=== PATIENT | female | born 2000 | race Caucasian/White ===

== ENCOUNTER 2022-01-22 03:29 | Emergency (ER) | payer OTHER ==
[2022-01-22 03:37] VITALS: BP 120/47; PULSE 101; RESP 24; TEMP 98.4
[2022-01-22] MEDS ORDERED: ACETAMINOPHEN TAB 500 MG TAB PO STA (03:38)
[2022-01-22] MEDS ORDERED: IBUPROFEN 800 MG TAB PO STA (03:38)
--- NOTE | 2022-01-22 03:39 | ED ---
Fever HPI - General Chief Complaint: Fever Stated Complaint: Fever Time Seen by Provider: 01/22/22 03:37 Source: patient, RN notes reviewed, old records reviewed Mode of arrival: wheelchair Limitations: no limitations - History of Present Illness Initial Comments: This is a 22-year-old female who awakens with fever. Patient's is very anxious on arrival to ER. States her body aches and some pain. States she took a shower does not feel any better. She did take some aspirin prior to arrival. Patient has history of anxiety takes no medications has no medical history no other complaint MD Complaint: fever, malaise -: days(s) Temperature Source: subjective Context: sick contacts Associated Symptoms: chills, myalgias, nasal congestion, sore throat Treatments Prior to Arrival: none - Related Data Allergies Allergy/AdvReac Type Severity Reaction Status Date / Time No Known Allergies Allergy Verified 01/22/22 03:36 Review of Systems ROS Statement: Those systems with pertinent positive or pertinent negative responses have been documented in the HPI. ROS Other: All systems not noted in ROS Statement are negative. Past Medical History Past Medical History: No Reported History Past Surgical History: Appendectomy Past Psychological History: Anxiety Smoking Status: Current some day smoker Past Alcohol Use History: None Reported Past Drug Use History: None Reported General Exam Limitations: no limitations General appearance: alert, in no apparent distress Head exam: Present: atraumatic, normocephalic, normal inspection Eye exam: Present: normal appearance, PERRL, EOMI. Absent: scleral icterus, conjunctival injection, periorbital swelling ENT exam: Present: normal exam, mucous membranes moist Neck exam: Present: normal inspection. Absent: tenderness, meningismus, lymphadenopathy Respiratory exam: Present: normal lung sounds bilaterally. Absent: respiratory distress, wheezes, rales, rhonchi, stridor Cardiovascular Exam: Present: normal rhythm, tachycardia, normal heart sounds. Absent: systolic murmur, diastolic murmur, rubs, gallop, clicks GI/Abdominal exam: Present: soft, normal bowel sounds. Absent: distended, tenderness, guarding, rebound, rigid Extremities exam: Present: normal inspection, full ROM, normal capillary refill. Absent: tenderness, pedal edema, joint swelling, calf tenderness Back exam: Present: normal inspection Neurological exam: Present: alert, oriented X3, CN II-XII intact Psychiatric exam: Present: normal affect, normal mood Skin exam: Present: warm, dry, intact, normal color. Absent: rash Course Vital Signs 01/22/22 03:31 Temperature 98.4 F Pulse Rate 101 H Respiratory 24 Rate Blood Pressure 120/47 O2 Sat by Pulse 99 Oximetry - Reevaluation(s) Reevaluation #1: 01/22/22 04:19 Record is reviewed Reevaluation #2: 01/22/22 05:08 Patient complaining of increasing pain and severe weakness 01/22/22 05:08 Patient states she's having difficulty ambulating Reevaluation #3: 01/22/22 06:07 Is feeling currently better with fluid resuscitation and anti-inflammatory treatment, will continue Motrin Tylenol at home as well as pain control nausea Reevaluation #4: 01/22/22 06:07 she is informed results and questions answered Medical Decision Making - Medical Decision Making 22 female DF for evaluation patient Dese for evaluation bodyaches and pains. Anxiety. Patient also noted fevers and chills. Patient did have significantly elevated white blood cell, with no significant cause. Likely viral syndrome currently. Patient will be given symptomatically therapy can be discharged home - Lab Data Result diagrams: 01/22/22 05:14 01/22/22 05:14 Lab Results 01/22/22 01/22/22 01/22/22 Range/Units 03:51 03:51 04:21 WBC (3.8-10.6) k/uL RBC (3.80-5.40) m/uL Hgb (11.4-16.0) gm/dL Hct (34.0-46.0) % MCV (80.0-100.0) fL MCH (25.0-35.0) pg MCHC (31.0-37.0) g/dL RDW (11.5-15.5) % Plt Count (150-450) k/uL MPV Neutrophils % % Lymphocytes % % Monocytes % % Eosinophils % % Basophils % % Neutrophils # (1.3-7.7) k/uL Lymphocytes # (1.0-4.8) k/uL Monocytes # (0-1.0) k/uL Eosinophils # (0-0.7) k/uL Basophils # (0-0.2) k/uL Sodium (137-145) mmol/L Potassium (3.5-5.1) mmol/L Chloride (98-107) mmol/L Carbon Dioxide (22-30) mmol/L Anion Gap mmol/L BUN (7-17) mg/dL Creatinine (0.52-1.04) mg/dL Est GFR (CKD-EPI)AfAm (>60 ml/min/1.73 sqM) Est GFR (CKD-EPI)NonAf (>60 ml/min/1.73 sqM) Glucose (74-99) mg/dL Calcium (8.4-10.2) mg/dL Phosphorus (2.5-4.5) mg/dL Magnesium (1.6-2.3) mg/dL Total Bilirubin (0.2-1.3) mg/dL AST (14-36) U/L ALT (4-34) U/L Alkaline Phosphatase (38-126) U/L Total Protein (6.3-8.2) g/dL Albumin (3.5-5.0) g/dL Urine Color Yellow Urine Appearance Clear (Clear) Urine pH 7.5 (5.0-8.0) Ur Specific [place] 1.023 (1.001-1.035) Urine Protein Negative (Negative) Urine Glucose (UA) Negative (Negative) Urine Ketones Trace H (Negative) Urine Blood Negative (Negative) Urine Nitrite Negative (Negative) Urine Bilirubin Negative (Negative) Urine Urobilinogen <2.0 (<2.0) mg/dL Ur Leukocyte Esterase Negative (Negative) Urine HCG, Qual (Not Detectd) Coronavirus (PCR) Not Detected (Not Detectd) Influenza Type A RNA Not Detected (Not Detectd) Influenza Type B (PCR) Not Detected (Not Detectd) 01/22/22 01/22/22 01/22/22 Range/Units 04:21 05:14 05:14 WBC 18.3 H (3.8-10.6) k/uL RBC 4.68 (3.80-5.40) m/uL Hgb 13.5 (11.4-16.0) gm/dL Hct 41.4 (34.0-46.0) % MCV 88.3 (80.0-100.0) fL MCH 28.7 (25.0-35.0) pg MCHC 32.5 (31.0-37.0) g/dL RDW 12.4 (11.5-15.5) % Plt Count 312 (150-450) k/uL MPV 6.6 Neutrophils % 88 % Lymphocytes % 7 % Monocytes % 2 % Eosinophils % 2 % Basophils % 0 % Neutrophils # 16.2 H (1.3-7.7) k/uL Lymphocytes # 1.3 (1.0-4.8) k/uL Monocytes # 0.4 (0-1.0) k/uL Eosinophils # 0.3 (0-0.7) k/uL Basophils # 0.1 (0-0.2) k/uL Sodium 136 L (137-145) mmol/L Potassium 3.9 (3.5-5.1) mmol/L Chloride 105 (98-107) mmol/L Carbon Dioxide 18 L (22-30) mmol/L Anion Gap 13 mmol/L BUN 15 (7-17) mg/dL Creatinine 0.63 (0.52-1.04) mg/dL Est GFR (CKD-EPI)AfAm >90 (>60 ml/min/1.73 sqM) Est GFR (CKD-EPI)NonAf >90 (>60 ml/min/1.73 sqM) Glucose 109 H (74-99) mg/dL Calcium 9.4 (8.4-10.2) mg/dL Phosphorus 2.4 L (2.5-4.5) mg/dL Magnesium 1.5 L (1.6-2.3) mg/dL Total Bilirubin 0.4 (0.2-1.3) mg/dL AST 26 (14-36) U/L ALT 19 (4-34) U/L Alkaline Phosphatase 73 (38-126) U/L Total Protein 7.0 (6.3-8.2) g/dL Albumin 4.3 (3.5-5.0) g/dL Urine Color Urine Appearance (Clear) Urine pH (5.0-8.0) Ur Specific [place] (1.001-1.035) Urine Protein (Negative) Urine Glucose (UA) (Negative) Urine Ketones (Negative) Urine Blood (Negative) Urine Nitrite (Negative) Urine Bilirubin (Negative) Urine Urobilinogen (<2.0) mg/dL Ur Leukocyte Esterase (Negative) Urine HCG, Qual Not Detected (Not Detectd) Coronavirus (PCR) (Not Detectd) Influenza Type A RNA (Not Detectd) Influenza Type B (PCR) (Not Detectd) - Radiology Data Radiology results: report reviewed (Chest x-rays negative for acute disease), image reviewed Disposition Clinical Impression: Viral infection, Myalgia, Arthritis, Fever, Leukocytosis, Hypomagnesemia, Anxiety Disposition: HOME SELF-CARE Condition: Good Instructions (If sedation given, give patient instructions): Fever in Adults (ED) Is patient prescribed a controlled substance at d/c from ED?: No Referrals: Nonstaff,Physician [Primary Care Provider] - 1-2 days Time of Disposition: 06:10
[2022-01-22] MEDS ORDERED: LORazepam 1 MG TAB PO STA (03:47)
--- NOTE | 2022-01-22 04:09 | XR ---
EXAMINATION TYPE: XR chest 1V DATE OF EXAM: 01/22/2022 COMPARISON: NONE HISTORY: Fever and chills TECHNIQUE: Single view FINDINGS: Heart and mediastinum are normal. Lungs are clear. Diaphragm is normal. Bony thorax is inta ct. IMPRESSION: Normal chest.
[2022-01-22 04:39] LABS: Appearance,Urine Clear (Clear); Bilirubin,Urine Negative (Negative); Blood,Urine Negative (Negative); Color,Urine Yellow; Glucose,Urine (UA) Negative (Negative); Ketones,Urine Trace (Negative); Leukocyte Esterase,Urine Negative (Negative); Nitrite,Urine Negative (Negative); PH, Urine 7.5 (5.0-8.0); Protein,Urine Negative (Negative); Specific Gravity,Urine 1.023 (1.001-1.035); Urobilinogen,Urine <2.0 mg/dL (<2.0)
[2022-01-22] MEDS ORDERED: SODIUM CHLORIDE 0.9% 1,000 ML IV STA (04:58)
[2022-01-22] MEDS ORDERED: MORPHINE SULFATE 2 MG/ML SYRINGE IVP STA (04:58)
[2022-01-22] MEDS ORDERED: DEXAMETHASONE SOD PHOSPHATE 10 MG/ML 1 ML VIAL IVP STA (04:58)
[2022-01-22 05:20] LABS: Basophils # (A) 0.1 k/uL (0-0.2); Basophils % (A) 0 %; Eosinophils # (A) 0.3 k/uL (0-0.7); Eosinophils % (A) 2 %; HCT 41.4 % (34.0-46.0); HGB 13.5 gm/dL (11.4-16.0); Lymphocytes # (A) 1.3 k/uL (1.0-4.8); Lymphocytes % (A) 7 %; MCH 28.7 pg (25.0-35.0); MCHC 32.5 g/dL (31.0-37.0); MCV 88.3 fL (80.0-100.0); Mean Platelet Volume 6.6; Monocytes # (A) 0.4 k/uL (0-1.0); Monocytes % (A) 2 %; Neutrophils # (A) 16.2 k/uL (1.3-7.7); Neutrophils % (A) 88 %; Platelet Count 312 k/uL (150-450); RBC 4.68 m/uL (3.80-5.40); RDW 12.4 % (11.5-15.5); WBC 18.3 k/uL (3.8-10.6)
[2022-01-22 05:31] LABS: ALT 19 U/L (4-34); AST 26 U/L (14-36); African American GFR (CKD) >90 (>60 ml/min/1.73 sqM); Albumin 4.3 g/dL (3.5-5.0); Alkaline Phosphatase 73 U/L (38-126); Anion Gap 13 mmol/L; Blood Urea Nitrogen 15 mg/dL (7-17); Calcium 9.4 mg/dL (8.4-10.2); Carbon Dioxide 18 mmol/L (22-30); Chloride 105 mmol/L (98-107); Glucose 109 mg/dL (74-99); Magnesium 1.5 mg/dL (1.6-2.3); Non-African American GFR(CKD) >90 (>60 ml/min/1.73 sqM); Phosphorus 2.4 mg/dL (2.5-4.5); Potassium 3.9 mmol/L (3.5-5.1); Sodium 136 mmol/L (137-145); Total Bilirubin 0.4 mg/dL (0.2-1.3)
[2022-01-22] MEDS ORDERED: MAGNESIUM OXIDE 400 MG TAB PO STA ×2 (05:41)
[2022-01-22] MEDS ORDERED: ACET/COD 300 MG/30 MG STARTER PACK 6 TAB BTL PO STA (06:05)
[2022-01-22] MEDS ORDERED: ONDANSETRON 4 MG ODT STARTER PACK 2 TAB BTL PO STA (06:05)
[2022-01-22] MEDS ORDERED: IBUPROFEN 600 MG STARTER PACK 4 TAB BTL PO STA (06:05)
[2022-01-22] MEDS ORDERED: traMADol 50 MG STARTER PACK 3 TAB BTL PO STA (06:05)
[2022-01-22 14:32] LABS: C Reactive Protein 0.7 mg/dL (<1.0)
== END 2022-01-22 06:27 | disposition home or self-care (01) ==
LOC: EC 03:29
DX: B34.9 Viral infection, unspecified (principal); M19.90 Unspecified osteoarthritis, unspecified site; D72.829 Elevated white blood cell count, unspecified; E83.42 Hypomagnesemia; F41.9 Anxiety disorder, unspecified; F17.200 Nicotine dependence, unspecified, uncomplicated; Z20.822 Contact with and (suspected) exposure to COVID-19
CPT/HCPCS: 99283; 36415; 80053; 82550; 82553; 83615; 83735; 84100; 85025; 86140; 81003; 81025; 87502; 87635; 71045; 96374; 96375; 96361; J1100; J2270

== ENCOUNTER 2022-12-02 22:30 | Inpatient (IN) | payer OTHER ==
[2022-12-02] MEDS ORDERED: OXYTOCIN 10 UNIT/ML 1 ML VIAL IM PRN (23:03)
[2022-12-02] MEDS ORDERED: LIDOCAINE 0.5% (PF) 5 MG/ML (50 ML SDV) SQ PRN (23:03)
[2022-12-02] MEDS ORDERED: METHYLERGONOVINE 0.2 MG/ML 1 ML AMP IM PRN (23:03)
[2022-12-02] MEDS ORDERED: TERBUTALINE 1 MG/ML VIAL SQ PRN (23:03)
[2022-12-02] MEDS ORDERED: TRANEXAMIC 1,000 MG/100ML-NACL 1,000 MG in EMPTY BAG 1 BAG IV PRN (23:03)
[2022-12-02] MEDS ORDERED: miSOPROStoL 200 MCG TAB PO PRN (23:03)
[2022-12-02] MEDS ORDERED: CARBOPROST TROMETHAMINE 250 MCG/ML 1 ML AMP IM PRN (23:03)
[2022-12-02] MEDS ORDERED: NALBUPHINE 10 MG/ML (10 ML MDV) IV PRN (23:04)
[2022-12-02] MEDS ORDERED: OXYTOCIN 30 UNITS/500 ML NS 30 UNIT in SALINE 1 500ML.BAG IV SCH (23:15)
[2022-12-02 23:36] LABS: Basophils % (A) 0 %; Eosinophils # (A) 0.1 k/uL (0-0.7); Eosinophils % (A) 1 %; HCT 35.8 % (34.0-46.0); HGB 11.9 gm/dL (11.4-16.0); Lymphocytes # (A) 3.1 k/uL (1.0-4.8); Lymphocytes % (A) 22 %; MCH 29.1 pg (25.0-35.0); MCHC 33.2 g/dL (31.0-37.0); MCV 87.9 fL (80.0-100.0); Mean Platelet Volume 7.7; Monocytes # (A) 0.8 k/uL (0-1.0); Monocytes % (A) 6 %; Neutrophils # (A) 10.1 k/uL (1.3-7.7); Neutrophils % (A) 70 %; Platelet Count 259 k/uL (150-450); RBC 4.07 m/uL (3.80-5.40); RDW 14.1 % (11.5-15.5); WBC 14.4 k/uL (3.8-10.6)
[2022-12-03] MEDS: LACTATED RINGERS 1,000 ML IV SCH ×3 (00:46→21:50)
--- NOTE | 2022-12-03 10:22 | P.HPOB ---
History of Present Illness H&P Date: 12/03/22 Chief Complaint: Leakage of fluid Ms. Brush is a 22 year old at 40 weeks and 1 day with EDC of 12/02/2022 (by LMP consistent with 8 week US) who presented to labor and delivery yesterday evening with rupture of membranes at 2200 yesterday evening revealing clear fluid. The patient was admitted overnight and labor was augmented with pitocin. 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 The patient also has a history of anxiety but does not take medications for this. The fetus was estimated at 72%ile for gestational age at 32 week ultrasound. Maternal work-up: blood type O positive, antibody negative, rubella immune, VDRL non-reactive, HBsAg negative, HIV negative, gonorrhea negative, chlamydia negative, 1 hour GTT 122, GBS negative. TDap administered 09/12/2022. Past medical history: None Past surgical history: Appendectomy Medications: Aspirin 81mg daily, pepcid 20mg daily, vitamins Allergies: NKDA Past Medical History Past Medical History: No Reported History History of Any Multi-Drug Resistant Organisms: None Reported Past Surgical History: Appendectomy Past Anesthesia/Blood Transfusion Reactions: No Reported Reaction Past Psychological History: Anxiety Smoking Status: Current some day smoker Past Alcohol Use History: None Reported Past Drug Use History: None Reported Medications and Allergies Home Medications Medication Instructions Recorded Confirmed Type Aspirin 81 mg PO DAILY 12/02/22 12/02/22 History Famotidine [Pepcid] 10 mg PO DAILY 12/02/22 12/02/22 History Vit No.179/Iron/Folic 1 tab PO DAILY 12/02/22 12/02/22 History [ Tablet] Allergies Allergy/AdvReac Type Severity Reaction Status Date / Time No Known Allergies Allergy Verified 01/22/22 03:36 Exam Vital Signs Temp Pulse Resp BP Pulse Ox 12/02/22 23:19 97.8 F 109 H 16 125/62 99 12/02/22 22:59 97.8 F 109 H 16 125/62 99 Intake and Output 12/02/22 12/03/22 12/03/22 22:59 06:59 14:59 Other: Weight 79.379 kg Focused physical exam is performed. This is a healthy-appearing in no apparent distress. Abdomen is non-tender, gravid. Cervical exam is deferred as the patient was recently checked by her nurse. Extremities are non-tender, non- edematous. heart tones are Category I with pitocin at 14 units. Tocometer is not graphing contractions well and shows an irregular pattern ever 3-7 minutes. Results Result Diagrams: 12/02/22 23:21 Abnormal Lab Results - Last 24 Hours (Table) 12/02/22 Range/Units 23:21 WBC 14.4 H (3.8-10.6) k/uL Neutrophils # 10.1 H (1.3-7.7) k/uL Assessment and Plan Assessment: 22 year old at 40 weeks and 1 day presenting after spontaenous rupture of membranes Plan: Admit, NPO, mIVF, pitocin augmentation titrated per hospital protocol, IV nubain prn or nitrous oxide prn. Continious EFM, close monitoring of patient. Time with Patient: Less than 30 (10 minutes)
[2022-12-03] MEDS ORDERED: ROPIVACAINE 5 MG/ML 20 ML AMPULE ONE (14:58)
[2022-12-03] MEDS ORDERED: SODIUM CHLORIDE 0.9% 100 ML BAG ONE (14:58)
[2022-12-03] MEDS ORDERED: fentaNYL (PF) 50 MCG/ML 5 ML AMP ONE (14:58)
[2022-12-03] MEDS ORDERED: MORPHINE SULFATE 4 MG/ML SYRINGE IVP STA (21:08)
[2022-12-03] MEDS ORDERED: miSOPROStoL 200 MCG TAB RECTAL STA (22:08)
[2022-12-03] MEDS ORDERED: BENZOCAINE/MENTHOL SPRAY 1 GM/SPRAY AEROSOL TOPICAL PRN (22:25)
[2022-12-03] MEDS ORDERED: diphenhydrAMINE 50 MG/ML 1 ML VIAL IVP PRN ×2 (22:25)
[2022-12-03] MEDS ORDERED: diphenhydrAMINE 25 MG CAP PO PRN (22:25)
[2022-12-03] MEDS ORDERED: ZOLPIDEM 5 MG TAB PO PRN (22:25)
[2022-12-03] MEDS ORDERED: HYDROCORTISONE 2.5% RECTAL CREAM 30 GM TUBE RECTAL PRN (22:25)
[2022-12-03] MEDS ORDERED: LANOLIN CREAM 5 GM TUBE TOPICAL PRN (22:25)
[2022-12-03] MEDS ORDERED: diphenhydrAMINE 50 MG CAP PO PRN (22:25)
[2022-12-03] MEDS ORDERED: SIMETHICONE 80 MG CHEWABLE PO PRN (22:25)
[2022-12-03] MEDS ORDERED: OXYTOCIN 30 UNITS/500 ML NS 30 UNIT in SALINE 1 500ML.BAG IV SCH (22:30)
--- NOTE | 2022-12-03 22:33 | P.PROBDLV ---
Vaginal Delivery Note - . Vaginal Delivery Note: DATE OF SERVICE: 12/03/2022 PROCEDURE: Vaginal Delivery Complicated by Hemorrhage ATTENDING: Dr. Kim Haque MD ESTIMATED BLOOD LOSS: 1,000 mL FINDINGS: VMI, Apgars 8/9. Weight 7 pounds and 12.5 ounces (3530 grams) PROCEDURE: This is a 22 year old at 40 weeks and 1 day presenting to labor and delivery after spontaneous rupture of membranes. The had been uncomplicated. For further details, please review the admitting H&P. The patient was completely dilated at 1955. The patient pushed the head effectively. The head was delivered over an intact perineum follow by the shoulders and body. A viable male infant was delivered at 2054. The infant was placed on the maternal abdomen and bulb suctioned. Cord was clamped and cut after a 30-second delay. The infant was handed off to the pediatric team. Placenta was delivered whole with gentle cord traction at 2056. Oxytocin was started to facilitate uterine tone. Uterine fundus was found to be firm and below the umbilicus upon fundal massage. Thorough examination of the cervix, vagina, periurethral area, and perineum revealed a right labial laceration and a first degree perineal laceration. These were repaired with 2-0 and 3-0 Vicryl in a running fashion respectively. Brisk bleeding was noted from the uterus and a with bimanual uterine massage a significant amount of blood clots were extracted from the cervix. Oxytocin was run wide open, Methergine 0.2 mg IM was given, and 1,000mg of rectal cytotec was placed. The bleeding was minimal at this time and the fundus was firm. The patient is stable and allowed to begin the bonding process.require repair and an intact perineum. Patient stable .
[2022-12-04] MEDS: LACTATED RINGERS 1,000 ML IV SCH (00:51)
[2022-12-04] MEDS: IBUPROFEN 600 MG TAB PO PRN ×3 (03:25→18:03)
[2022-12-04 03:51] LABS: Basophils % (A) 0 %; Eosinophils # (A) 0.1 k/uL (0-0.7); Eosinophils % (A) 0 %; HCT 27.5 % (34.0-46.0); Lymphocytes # (A) 1.9 k/uL (1.0-4.8); Lymphocytes % (A) 9 %; MCH 29.6 pg (25.0-35.0); MCHC 33.8 g/dL (31.0-37.0); MCV 87.6 fL (80.0-100.0); Mean Platelet Volume 7.7; Monocytes # (A) 0.8 k/uL (0-1.0); Monocytes % (A) 4 %; Neutrophils # (A) 18.9 k/uL (1.3-7.7); Neutrophils % (A) 87 %; Platelet Count 234 k/uL (150-450); RBC 3.14 m/uL (3.80-5.40); RDW 14.2 % (11.5-15.5); WBC 21.7 k/uL (3.8-10.6)
[2022-12-04 04:02] LABS: HGB 9.3 gm/dL (11.4-16.0)
[2022-12-04] MEDS: ACETAMINOPHEN TAB 325 MG TAB PO PRN ×3 (08:00→20:38)
[2022-12-04] MEDS: SENNOSIDES-DOCUSATE SODIUM 1 EACH TAB PO SCH ×2 (08:02→20:39)
[2022-12-04 08:31] LABS: Basophils % (A) 0 %; Eosinophils # (A) 0.1 k/uL (0-0.7); Eosinophils % (A) 0 %; HCT 26.3 % (34.0-46.0); HGB 9.1 gm/dL (11.4-16.0); Lymphocytes # (A) 2.5 k/uL (1.0-4.8); Lymphocytes % (A) 15 %; MCH 30.4 pg (25.0-35.0); MCHC 34.6 g/dL (31.0-37.0); Mean Platelet Volume 7.5; Monocytes # (A) 0.9 k/uL (0-1.0); Monocytes % (A) 5 %; Neutrophils # (A) 13.4 k/uL (1.3-7.7); Neutrophils % (A) 79 %; Platelet Count 235 k/uL (150-450); RBC 2.98 m/uL (3.80-5.40); RDW 14.1 % (11.5-15.5); WBC 16.9 k/uL (3.8-10.6)
--- NOTE | 2022-12-04 10:21 | P.PNOBGVD ---
Subjective - Subjective Principal diagnosis: s/p vaginal delivery complicated by hemorrhage Interval history: The patient is doing well this morning and had no acute events overnight. She has no complaints this morning. She reports minimal lochia, passing flatus, voiding without difficulty, ambulating, and eating/drinking without nausea or vomiting. She is her infant without difficulty. She denies chest pain, shortness of breathing, fevers, or chills overnight. She denies pain or swelling in the legs. She denies lightheadedness with ambulation. Patient reports: Reports appetite normal, Reports voiding normally, Reports pain well controlled, Reports ambulating normally : doing well, nursing well Objective - Latest Vital Signs Latest vital signs: Vital Signs Temp Pulse Pulse Resp BP Pulse Ox 12/04/22 04:00 99.2 F 115 H 16 103/67 98 12/03/22 23:40 100.3 F H 82 18 117/56 100 12/03/22 23:10 97 18 119/58 12/03/22 22:40 108 H 16 116/68 12/03/22 22:25 104 H 16 140/66 100 12/03/22 22:10 120 H 16 115/54 12/03/22 21:55 98.5 F 104 H 16 118/54 100 12/03/22 21:40 114 H 16 120/55 Intake and Output 12/03/22 12/04/22 12/04/22 22:59 06:59 14:59 Intake Total 224.067 Output Total 1000 134 Balance -775.933 -134 Intake: Intake, IV Titration 224.067 Amount Oxytocin 30 Units/500 ml 224.067 Ns 30 unit In Saline 1 500ml.bag @ Per Protocol IV .Q0M [facility] Rx#:[id number] Output: Estimated Blood Loss 1000 Output, Quantitative 134 Blood Loss Other: # Voids 1 - Exam Extremities: Present: normal Abdomen: Present: normal appearance, soft Uterus: Present: normal, firm - Labs Labs: Abnormal Lab Results - Last 24 Hours (Table) 12/04/22 12/04/22 Range/Units 03:11 07:26 WBC 21.7 H 16.9 H (3.8-10.6) k/uL RBC 3.14 L 2.98 L (3.80-5.40) m/uL Hgb 9.3 L D 9.1 L (11.4-16.0) gm/dL Hct 27.5 L 26.3 L (34.0-46.0) % Neutrophils # 18.9 H 13.4 H (1.3-7.7) k/uL Assessment and Plan Assessment: 22 year old now PPD#1 s/p vaginal delivery complicated by hemorrhage Plan: 1. . Patient meeting all miltestones appropriately. 2. hemorrhage. Hgb 11.9 > 1,000mL EBL > 9.3 > 9.1. Hgb now stable. Patient with intermittent tachycardia overnight. Vital signs stable this morning. Patient asymptomatic. 3. fever x1, 100.3 at 2340 /24. Suspect reactive. Continue to monitor. 4. Viable male infant at bedside doing well. Consented for circumcision today. Dispo: Anticipate discharge home tomorrow morning.
[2022-12-05] MEDS: IBUPROFEN 600 MG TAB PO PRN ×2 (00:33→06:54)
[2022-12-05] MEDS: ACETAMINOPHEN TAB 325 MG TAB PO PRN ×2 (03:21→12:20)
[2022-12-05 07:37] LABS: Basophils % (A) 0 %; Eosinophils # (A) 0.2 k/uL (0-0.7); Eosinophils % (A) 2 %; HCT 22.7 % (34.0-46.0); HGB 7.8 gm/dL (11.4-16.0); Lymphocytes # (A) 3.3 k/uL (1.0-4.8); Lymphocytes % (A) 29 %; MCH 30.6 pg (25.0-35.0); MCHC 34.2 g/dL (31.0-37.0); MCV 89.4 fL (80.0-100.0); Mean Platelet Volume 7.7; Monocytes # (A) 0.5 k/uL (0-1.0); Monocytes % (A) 4 %; Neutrophils # (A) 7.3 k/uL (1.3-7.7); Neutrophils % (A) 64 %; Platelet Count 225 k/uL (150-450); RBC 2.54 m/uL (3.80-5.40); RDW 14.5 % (11.5-15.5); WBC 11.4 k/uL (3.8-10.6)
[2022-12-05] MEDS: SENNOSIDES-DOCUSATE SODIUM 1 EACH TAB PO SCH (08:04)
--- NOTE | 2022-12-05 10:04 | P.PNOBGVD ---
Subjective - Subjective Principal diagnosis: s/p vaginal delivery complicated by PP hemorrhage Interval history: Patient doing well this morning, no acute events overnight. Has no complains. Desires discharge home today. Ambulating without lightheadedness, voiding without difficulty, tolerating PO without nausea or vomiting, minimal lochia. infant male well, infant s/p cirucmcision. Denies fevers, chills, chest pain, shortness of breath, pain/swelling in the legs. Patient reports: Reports appetite normal, Reports voiding normally, Reports pain well controlled, Reports ambulating normally : doing well, nursing well Objective - Latest Vital Signs Latest vital signs: Vital Signs Temp Pulse Pulse Resp BP Pulse Ox 12/05/22 07:55 97.8 F 107 H 16 105/55 12/05/22 00:00 98.3 F 87 16 117/76 97 12/04/22 16:00 98.5 F 92 17 108/76 98 12/04/22 12:00 98.4 F 97 18 116/62 99 Intake and Output 12/04/22 12/05/22 12/05/22 22:59 06:59 14:59 Other: # Voids 2 2 1 - Exam Extremities: Present: normal Abdomen: Present: normal appearance, soft Uterus: Present: normal, firm - Labs Labs: Abnormal Lab Results - Last 24 Hours (Table) 12/05/22 Range/Units 07:12 WBC 11.4 H (3.8-10.6) k/uL RBC 2.54 L (3.80-5.40) m/uL Hgb 7.8 L (11.4-16.0) gm/dL Hct 22.7 L (34.0-46.0) % Assessment and Plan Assessment: 22 year old now PPD#2 s/p vaginal delivery complicated by hemorrhage Plan: 1. . Patient meeting all miltestones appropriately. 2. hemorrhage. Hgb 11.9 > 1,000mL EBL > 9.3 > 9.1 >7.8. Vital signs stable this morning. Patient asymptomatic. Will d/c on PO iron supplementation. 3. Viable male at bedside doing well. s/p circumcision. Dispo: Discharge home today.
--- NOTE | 2022-12-05 10:10 | P.DS ---
Providers Date of admission: 12/02/22 23:07 Expected date of discharge: 12/05/22 Attending physician: Kim Haque MD Primary care physician: Stated None Hospital Course: This is a 22 year old now PPD#2 s/p vaginal delivery complicated by hemorrhage. She is feeling well today, is asymptomatic, ambulating without difficulty. She is voiding without difficulty, tolerating PO without nausea or vomiting. She is male well, s/p circumcision. She desires discharge home today. She denies fevers, chills, chest pain, shortness of breath, pain/swelling in the legs. I discussed discharge inst ructions including pelvic rest for 6 weeks. I encouraged the patient to call the office for pain worsening rather than improving, heavy bleeding, foul-smelling vaginal discharge, breast complaints, mood concerns, or any other questions. All questions answered this morning. Patient will follow up in the office in 6 weeks for appointment. Assessment: 22 year old now PPD#2 s/p vaginal delivery complicated by hemorrhage. Patient Condition at Discharge: Good Plan - Discharge Summary Discharge Rx Participant: No New Discharge Prescriptions: New Ferrous Sulfate [Iron (65 MG Elemental)] 325 mg PO DAILY #30 tab polyethylene glycoL 3350 [Miralax] 17 gm PO DAILY PRN #527 gm PRN Reason: Constipation Acetaminophen Tab [Tylenol] 650 mg PO Q6H PRN #30 tab PRN Reason: Mild Pain (Scale 1 To 3) Ibuprofen [Motrin] 600 mg PO Q6HR PRN #30 tab PRN Reason: Mild Pain (Scale 1 To 3) No Action Vit No.179/Iron/Folic [ Tablet] 1 tab PO DAILY Famotidine [Pepcid] 10 mg PO DAILY Aspirin 81 mg PO DAILY Discharge Medication List Aspirin 81 mg PO DAILY 12/02/22 [History] Famotidine [Pepcid] 10 mg PO DAILY 12/02/22 [History] Vit No.179/Iron/Folic [ Tablet] 1 tab PO DAILY 12/02/22 [History] Acetaminophen Tab [Tylenol] 650 mg PO Q6H PRN #30 tab 12/05/22 [Rx] Ferrous Sulfate [Iron (65 MG Elemental)] 325 mg PO DAILY #30 tab 12/05/22 [Rx] Ibuprofen [Motrin] 600 mg PO Q6HR PRN #30 tab 12/05/22 [Rx] polyethylene glycoL 3350 [Miralax] 17 gm PO DAILY PRN #527 gm 12/05/22 [Rx] Follow up Appointment(s)/Referral(s): Kim Haque MD [STAFF PHYSICIAN] - 6 Weeks Patient Instructions/Handouts: How to Increase Your Milk Supply (DC), How to Tell if Your Baby is Getting Enough Breast Milk (DC), Depression (DC), Perineal Care (DC), Bleeding (DC) Activity/Diet/Wound Care/Special Instructions: Pelvic rest with nothing in the vagina including intercourse for 6 weeks Discharge Disposition: HOME SELF-CARE
[2022-12-05 16:36] VITALS: BP 108/69; PULSE 101; RESP 20; TEMP 98.1
== END 2022-12-05 18:50 | disposition home or self-care (01) | DRG 806 ==
LOC: FBPOP 22:30 → 4FBP 23:07
PROVIDERS: ADMIT Obstetrics & Gynecology; ATTEND Obstetrics & Gynecology
PROC: 3E0P7VZ Introduction of Hormone into Female Reproductive, Via Natural or Artificial Opening (ICD-10-PCS; principal; 2022-12-03)
PROC: 10E0XZZ Delivery of Products of Conception, External Approach (ICD-10-PCS; principal; 2022-12-03)
PROC: 0HQ9XZZ Repair Perineum Skin, External Approach (ICD-10-PCS; principal; 2022-12-03)
DX: O48.0 Post-term pregnancy (principal); O72.1 Other immediate postpartum hemorrhage; Z37.0 Single live birth; O99.354 Diseases of the nervous system complicating childbirth; O86.4 Pyrexia of unknown origin following delivery; O70.0 First degree perineal laceration during delivery; O99.334 Smoking (tobacco) complicating childbirth; O99.344 Other mental disorders complicating childbirth; O99.892 Other specified diseases and conditions complicating childbirth; F41.9 Anxiety disorder, unspecified; F17.210 Nicotine dependence, cigarettes, uncomplicated; G62.9 Polyneuropathy, unspecified; Z3A.40 40 weeks gestation of pregnancy; Z79.82 Long term (current) use of aspirin
CPT/HCPCS: 84112; 85025; 86850; 86900; 86901; 99213

== ENCOUNTER 2024-11-15 00:10 | Inpatient (IN) | payer BC ==
[2024-11-15 00:46] VITALS: RESP 16
[2024-11-15] MEDS ORDERED: LIDOCAINE 0.5% (PF) 5 MG/ML (50 ML SDV) SQ PRN (00:46)
[2024-11-15] MEDS ORDERED: TERBUTALINE 1 MG/ML VIAL SQ PRN (00:46)
[2024-11-15] MEDS ORDERED: TRANEXAMIC 1,000 MG/100ML-NACL 1,000 MG in EMPTY BAG 1 BAG IV PRN (00:46)
[2024-11-15] MEDS ORDERED: CARBOPROST TROMETHAMINE 250 MCG/ML 1 ML AMP IM PRN (00:46)
[2024-11-15] MEDS ORDERED: OXYTOCIN 10 UNIT/ML 1 ML VIAL IM PRN (00:46)
[2024-11-15] MEDS: LACTATED RINGERS 1,000 ML IV SCH (01:14)
[2024-11-15 01:31] LABS: Basophils # (A) 0.04 10*3/uL (0.00-0.10); Basophils % (A) 0.3 %; Eosinophils # (A) 0.17 10*3/uL (0.04-0.35); Eosinophils % (A) 1.5 %; HCT 35.2 % (37.2-46.3); HGB 11.8 g/dL (12.0-15.0); Lymphocytes # (A) 3.15 10*3/uL (0.90-5.00); Lymphocytes % (A) 26.9 %; MCH 29.1 pg (27.0-32.0); MCHC 33.5 g/dL (32.0-37.0); MCV 86.7 fL (80.0-97.0); Monocytes # (A) 0.77 10*3/uL (0.20-1.00); Monocytes % (A) 6.6 %; Neutrophils # (A) 7.46 10*3/uL (1.80-7.70); Neutrophils % (A) 63.8 %; Platelet Count 247 10*3/uL (140-440); RBC 4.06 10*6/uL (4.10-5.20); RDW 13.6 % (11.5-14.5); WBC 11.69 10*3/uL (4.50-10.00)
[2024-11-15] MEDS: ACETAMINOPHEN TAB 325 MG TAB PO STA (01:45)
[2024-11-15] MEDS ORDERED: OXYTOCIN 30 UNITS/500 ML NS 30 UNIT in SALINE 1 500ML.BAG IV SCH ×2 (05:30→21:15)
[2024-11-15] MEDS ORDERED: BUTORPHANOL 1 MG/ML 1 ML VIAL IV PRN (10:41)
--- NOTE | 2024-11-15 10:48 | P.HPOB ---
History of Present Illness H&P Date: 11/15/24 Chief Complaint: 38+ weeks, spontaneous rupture, early labor The patient is a 24-year-old 2 para 1-0-0-1 admitted at 38+ weeks as established by 9-week ultrasound. She is admitted with documented spontaneous rupture of membranes with clear fluid. On labor delivery, all signs are reassuring with a category 1 heart rate tracing. Her has been uncomplicated and group B strep status is negative. Obstetrical history: 2 para 1-0-0-1 with 1 term vaginal delivery complicated by -induced hypertension. Current statistics are listed in the history of present illness. EDC of 11/24/2024 was established by 9-week ultrasound. Laboratory workup demonstrates a blood type of O+ with a negative antibody screen. Rubella status is immune. The remainder of the laboratory workup was within normal limits though she is found to be hepatitis B nonimmune. Early Glucola and second trimester Glucola were within normal limits. Group B strep status is negative. Gynecologic history: Unremarkable with no history of any infections to include STDs. Review of Systems Review of systems is confined to history of present illness. Past Medical History Past Medical History: No Reported History History of Any Multi-Drug Resistant Organisms: None Reported Past Surgical History: Appendectomy Past Anesthesia/Blood Transfusion Reactions: No Reported Reaction Past Psychological History: Anxiety Smoking Status: Never smoker Past Alcohol Use History: None Reported Past Drug Use History: None Reported Medications and Allergies Allergies Allergy/AdvReac Type Severity Reaction Status Date / Time No Known Allergies Allergy Verified 01/22/22 03:36 Exam Vital Signs Temp Pulse Resp BP Pulse Ox 11/15/24 00:39 97.6 F 106 H 16 120/56 97 11/15/24 00:16 97.6 F 106 H 16 120/56 97 Intake and Output 11/14/24 11/15/24 11/15/24 22:59 06:59 14:59 Other: # Voids 4 Weight 83.915 kg In general, this is a well-developed, mild to moderately obese white female in no acute distress. Her heart has a regular rhythm and rate without murmur. Her lungs clear to auscultation bilaterally in all ol[place]arez. Her abdomen is gravid, nondistended, has normal active bowel sounds, soft, nontender, and without any palpable masses aside from uterine fundus. Her extremities are without any cyanosis, clubbing, or edema and are nontender to palpation bilaterally. Digital cervical examination performed by the nursing staff demonstrates her cervix to be 3 cm dilated, 70% effaced, with the vertex and presentation at -2 station. Spontaneous rupture of membranes is confirmed. Results Result Diagrams: 11/15/24 01:10 Abnormal Lab Results - Last 24 Hours (Table) 11/15/24 Range/Units 01:10 WBC 11.69 H (4.50-10.00) 10*3/uL RBC 4.06 L (4.10-5.20) 10*6/uL Hgb 11.8 L (12.0-15.0) g/dL Hct 35.2 L (37.2-46.3) % MPV 8.9 L (9.5-12.2) fL Immature Gran # 0.10 H (0.00-0.04) 10*3/uL Assessment and Plan (1) Term Current Visit: Yes Status: Acute Code(s): Z34.90 - ENCNTR FOR SUPRVSN OF NORMAL , UNSP, UNSP TRIMESTER SNOMED Code(s): 21188020 (2) Spontaneous rupture of membranes Current Visit: Yes Status: Acute Code(s): MXM0675 - SNOMED Code(s): 798089238 Plan: The patient was admitted for active management of labor. She has had Pitocin augmentation started as no labor ensued within 4 to 6 hours of rupture. She will have close maternal and surveillance and expectant management will be practiced. She is a good candidate for either IV or epidural analgesia, which ever she may choose. Should she make no significant progress at 12 to 14 hours from time of rupture, antibiotic prophylaxis will be started.
[2024-11-15] MEDS: PENICILLIN G POTASSIUM 5,000,000 UNIT in SODIUM CHLORIDE 0.9% 100 ML IVPB STA (15:05)
[2024-11-15] MEDS ORDERED: fentaNYL (PF) 50 MCG/ML 5 ML AMP ONE (16:47)
[2024-11-15] MEDS ORDERED: ROPIVACAINE 5 MG/ML 30 ML VIAL ONE (16:47)
[2024-11-15] MEDS ORDERED: SODIUM CHLORIDE 0.9% 250 ML BAG ONE (16:47)
[2024-11-15] MEDS: PENICILLIN G POTASSIUM 2,500,000 UNIT in SODIUM CHLORIDE 0.9% 100 ML IVPB SCH (19:21)
[2024-11-15] MEDS: METHYLERGONOVINE 0.2 MG/ML 1 ML AMP IM PRN (20:54)
[2024-11-15] MEDS ORDERED: ZOLPIDEM 5 MG TAB PO PRN (21:04)
[2024-11-15] MEDS ORDERED: HYDROCORTISONE 2.5% RECTAL CREAM 30 GM TUBE RECTAL PRN (21:04)
[2024-11-15] MEDS ORDERED: diphenhydrAMINE 25 MG CAP PO PRN (21:04)
[2024-11-15] MEDS ORDERED: SIMETHICONE 80 MG CHEWABLE PO PRN (21:04)
[2024-11-15] MEDS ORDERED: diphenhydrAMINE 50 MG/ML 1 ML VIAL IVP PRN ×2 (21:04)
[2024-11-15] MEDS ORDERED: LANOLIN CREAM 1 GM TUBE TOPICAL PRN (21:04)
--- NOTE | 2024-11-15 21:09 | P.PROBDLV ---
Vaginal Delivery Note - . Vaginal Delivery Note: Date of delivery/service: 11/15/2024 The patient is a 24-year-old 2 para 1-0-0-1 who was admitted to labor and delivery at 38-5/7 weeks by good dating parameters. She is admitted with documented spontaneous rupture of membranes and very early labor with all signs reassuring, category 1 heart rate tracing. Her has been essentially uncomplicated and group B strep status is negative. On labor and delivery, she made little progress over the first several hours and had Pitocin augmentation started. She continued to make little progress and was noted to have membranes still proceeding the head presenting which were ruptured artificially for a moderate amount of clear fluid. At that time, she had been ruptured for approximately 12 to 14 hours and antibiotic prophylaxis was started to cover for potential prolonged rupture and ascending infection. She then began to make progress into the active phase of labor. An epidural catheter was placed for analgesia. She then progressed fairly steadily through the afternoon to complete and pushed over the course of a single contraction to a normal spontaneous vaginal delivery of a viable 7 pound 10.2 ounce baby girl with Apgars of 10 at 1 minute and 10 at 5 minutes delivered in the right occiput anterior position. The placenta was delivered spontaneously, intact, and grossly normal with a grossly normal three-vessel cord inserted approximately 3 cm from the margin of the placental disc. There was a very small first-degree perineal laceration repaired with a single [id number] stitch of 3-0 chromic catgut without difficulty. There was a moderate amount of early bleeding after delivery of the placenta and, given her length of utilization of Pitocin, Methergine was given which caused significantly better tone with the uterus and minimal ongoing bleeding. Estimated blood loss for the entire delivery was approximately 200 mL. There were no complications. All sponge, instrument, and needle counts were correct. Both mother and are resting comfortably in recovery.
[2024-11-15] MEDS: IBUPROFEN 800 MG TAB PO PRN (22:37)
[2024-11-15] MEDS: BENZOCAINE/MENTHOL SPRAY 1 GM/SPRAY AEROSOL TOPICAL PRN (22:38)
[2024-11-16] MEDS: ACETAMINOPHEN TAB 500 MG TAB PO PRN (04:16)
[2024-11-16 07:35] LABS: Basophils # (A) 0.04 10*3/uL (0.00-0.10); Basophils % (A) 0.3 %; Eosinophils # (A) 0.04 10*3/uL (0.04-0.35); Eosinophils % (A) 0.3 %; HCT 30.0 % (37.2-46.3); HGB 10.1 g/dL (12.0-15.0); Lymphocytes # (A) 2.78 10*3/uL (0.90-5.00); Lymphocytes % (A) 19.2 %; MCH 29.7 pg (27.0-32.0); MCHC 33.7 g/dL (32.0-37.0); MCV 88.2 fL (80.0-97.0); Monocytes # (A) 1.00 10*3/uL (0.20-1.00); Monocytes % (A) 6.9 %; Neutrophils # (A) 10.50 10*3/uL (1.80-7.70); Neutrophils % (A) 72.6 %; Platelet Count 236 10*3/uL (140-440); RBC 3.40 10*6/uL (4.10-5.20); RDW 13.6 % (11.5-14.5); WBC 14.46 10*3/uL (4.50-10.00)
[2024-11-16] MEDS: SENNOSIDES-DOCUSATE SODIUM 1 EACH TAB PO SCH (07:46)
--- NOTE | 2024-11-16 08:57 | P.DS ---
Providers Date of admission: 11/15/24 00:36 Expected date of discharge: 11/16/24 Attending physician: Kim Haque MD Primary care physician: Stated None - Discharge Diagnosis(es) (1) Term Current Visit: Yes Status: Acute (2) Spontaneous rupture of membranes Current Visit: Yes Status: Acute (3) Normal spontaneous vaginal delivery Current Visit: Yes Status: Acute Hospital Course: The patient is a 24-year-old 2 para 1-0-0-1 admitted at 38+ weeks by good dating parameters. She is admitted with documented spontaneous rupture of membranes for clear fluid. On labor and delivery, all signs were reassuring with a category 1 heart rate tracing. Her was uncomplicated and group B strep status is negative. She had Pitocin augmentation started and continued to make very little progress at which time she was found to have a forebag which was ruptured artificially for further clear fluid. She then began to make relatively steady progress and had an epidural catheter placed for analgesia. She ultimately progressed to complete and pushed to a normal spontaneous vaginal delivery of a viable 7 pound 10 ounce baby girl with Apgars of 10 at 1 minute and 10 at 5 minutes. Her course was unremarkable with vital signs remaining stable and her temperature was afebrile throughout. She was deemed stable for discharge on day #1 and was discharged home to follow-up in the office in 6 weeks time routinely. Discharge instructions included calling for any significantly increased bleeding or foul-smelling lochia, significantly increased fever abdominal pain, perineal complaints, breast complaints, or anything else that concerned her. She was additionally instructed to have nothing in the vagina for at least 6 weeks time to include intercourse. She understood her instructions and agrees to follow-up as noted above. Discharge medications included continued vitamins as she has opted to breast-feed. She was otherwise to use [id number] analgesic pain medications as needed. Maternal blood type is O+ and rubella status is immune. Procedures: #1. Pitocin augmentation #2. Artificial rupture of membranes #3. Epidural analgesia #4. Normal spontaneous vaginal delivery #5. Repair of first-degree perineal laceration Patient Condition at Discharge: Stable Plan - Discharge Summary Follow up Appointment(s)/Referral(s): Kim Haque MD [STAFF PHYSICIAN] - 6 Weeks Discharge Disposition: HOME SELF-CARE
[2024-11-16 19:21] VITALS: BP 97/51; PULSE 80; TEMP 97.8
== END 2024-11-16 20:45 | disposition home or self-care (01) | DRG 807 ==
LOC: FBPOP 00:10 → 4FBP 00:36
PROVIDERS: ADMIT Obstetrics & Gynecology; ATTEND Obstetrics & Gynecology
PROC: 10E0XZZ Delivery of Products of Conception, External Approach (ICD-10-PCS; principal; 2024-11-15)
PROC: 0HQ9XZZ Repair Perineum Skin, External Approach (ICD-10-PCS; 2024-11-15)
DX: O70.0 First degree perineal laceration during delivery (principal); Z37.0 Single live birth; O99.344 Other mental disorders complicating childbirth; F41.9 Anxiety disorder, unspecified; Z3A.38 38 weeks gestation of pregnancy
CPT/HCPCS: 59025; 84112; 85025; 86850; 86900; 86901; 99213